=== PATIENT | female | born 1995 | race Caucasian/White ===

== ENCOUNTER 2022-10-17 15:56 | Emergency (ER) | payer OTHER, MEDICAID, SELFPAY ==
[2022-10-17 16:03] VITALS: BP 130/70; PULSE 98; RESP 16; TEMP 37.2; O2SAT 97; BMI 22.8
--- NOTE | 2022-10-17 16:09 | DI.RAD.S_ITS ---
PROCEDURE: XR TOE RT MIN 2V INDICATIONS: injury/pain TECHNIQUE: A single view of the foot and 2 views of the 1st toe(s) acquired. COMPARISON: None. FINDINGS: Bones: No fractures or dislocations. No suspicious bony lesions. Soft tissues: Generalized soft tissue swelling can be seen of the great toe. IMPRESSION: Generalized soft tissue swelling is seen of the great toe, without a focal bony abnormality. Dictated by: Eleazar Shaffer M.D. on 10/17/2022 at 15:47 Approved by: Eleazar Shaffer M.D. on 10/17/2022 at 15:48
--- NOTE | 2022-10-17 17:04 | ED_ITS ---
HPI - Extremity Injury (Lower) General Chief Complaint: Extremity Injury, Lower Stated Complaint: right foot injury/thinks broken Time Seen by Provider: 10/17/22 16:00 Source: patient Mode of arrival: Ambulatory History of Present Illness HPI Narrative: 27-year-old female nonsmoker without chronic medical history presents with her significant other and a chief complaint of an accidental injury to her right great toe prior to arrival. She was carrying some objects at home when she stepped awkwardly and caused her right great toe to bend down forcefully, she now has pain with attempts at range of motion, palpation and walking. She d enies numbness, tingling or weakness. She denies any chest pain or shortness of breath. She has no nausea, vomiting or diarrhea. Related Data Allergies Allergy/AdvReac Type Severity Reaction Status Date / Time amoxicillin Allergy Unknown Verified 05/16/22 10:33 Penicillins AdvReac Unknown Verified 05/16/22 10:33 Review of Systems Review of Systems Narrative: GENERAL: Denies chills, fatigue, malaise, fever, sweats. HEENT: Denies sinus pain, ear pain, sore throat, difficulty swallowing, dizziness. RESPIRATORY: Denies dyspnea, cough, wheezing, hemoptysis, sputum. CARDIOVASCULAR: Denies chest pain, palpitations, orthopnea, edema, GASTROINTESTINAL: Denies nausea, vomiting, abdominal pain, diarrhea, constipation, melena. : Denies dysuria, frequency, incontinence, hematuria, urinary retention. MUSCULOSKELETAL: See HPI SKIN: Denies rash, skin lesions, or other NEUROLOGIC: Denies weakness, headache, numbness, change in speech, confusion, seizures, incoordination. PSYCHIATRIC: No concerning psychosocial issues. 12 point review of systems is negative except for those stated above Patient History Social History Smoking Status: Never smoker Smoking Status: Never smoker Substance Use Type: does not use Exam Narrative Exam Narrative: GEN: AOx3 and in mild distress EYES: Pupils are equal, round, and reactive to light and accommodation. Extraoccular muscles are intact bilaterally. There is no subconjunctival hemorrhage or exudate. CHEST: Lungs are clear to auscultation bilaterally and free of wheezes, rales, or rhonchi. Heart rate is regular rhythm, there are no murmurs, clicks, rubs, or gallops. There is no chest wall tenderness. ABD: Abdomen is soft and nontender. There is no guarding or rebound. Bowel sounds are normal in all 4 quadrants. There is no mass or organomegaly. EXT: Full but painful range of motion of right great toe without obvious external manifestation of injury, closed, isolated and neurovascularly intact. Patient with 5/5 strength on active dorsiflexion of great toe, no subungual hematoma SKIN: Warm, pink, and dry. No erythema or rash Initial Vital Signs Initial Vital Signs: Vital Signs Temperature 98.9 F 10/17/22 16:03 Pulse Rate 98 H 10/17/22 16:03 Respiratory Rate 16 10/17/22 16:03 Blood Pressure 130/70 10/17/22 16:03 Pulse Oximetry 97 10/17/22 16:03 Oxygen Delivery Method 10/17/22 16:03 Procedures Orthopedic Splinting/Casting Injury #1: Side: right Lower Extremity Injury Location: foot Lower Extremity Immobilizer: post-op shoe Post splinting neuro exam: intact Post splinting vascular exam: intact Course Orders Ordered: ED Orders 10/17/22 16:09 XR toe RT min 2V Stat Vital Signs Vital signs: Vital Signs - 8 hr 10/17/22 16:03 Temperature 98.9 F Pulse Rate 98 H Respiratory Rate 16 Blood Pressure 130/70 Pulse Oximetry 97 Oxygen Delivery Method Room Air MDM - Extremity Injury (Lower) Imaging Data Extremity x-ray #1: Radiologist's Impression: [address] [address] XRay Report Signed Patient: Kristina Harkins MR#: [id number] : 1995 Acct:[id number] Age/Sex: 27 / F Date of Service: 10/17/22 Loc: ED Accession Number: [id number] ?? Procedure: XR toe RT min 2V Ordering Provider: Lamin Kam D.O. PROCEDURE:? XR TOE RT MIN 2V ? INDICATIONS:? injury/pain ? TECHNIQUE:? A single view of the foot and 2 views of the 1st toe(s) acquired.? ? COMPARISON:? None. ? FINDINGS:? ? Bones:? No fractures or dislocations.? No suspicious bony lesions.? ? Soft tissues:? Generalized soft tissue swelling can be seen of the great toe. ? IMPRESSION:? Generalized soft tissue swelling is seen of the great toe, without a focal bony abnormality. ? ? Dictated by: Eleazar Shaffer M.D. on 10/17/2022 at 15:47 ? ? Approved by: Eleazar Shaffer M.D. on 10/17/2022 at 15:48 ? Discharge Plan Departure Patient Disposition: Home Clinical Impression: Sprain of great toe Activity Restrictions/Additional Instructions: *You have been diagnosed with [Left great toe sprain. As we discussed there is no radiographic evidence of fracture or dislocation ] *What to do: *Please consider the routine use anti-inflammatories in the splint provided. As we discussed we would expect significant improvement in symptoms if not resolution over the next 5-7 days. * as we discussed please consider follow-up with local ortho or Podiatry, their contact number is listed below. Please let them know you were seen in the emergency department and we would like you seen in follow-up. *Return to Emergency Department if you should have any new, worsening or concerning symptoms Referrals: Val Gomes DPM [Physician] - Miscellaneous,DoctorMD [Primary Care Provider] - Visit Report Forms: Patient Portal/API
[2022-10-17 17:33] VITALS: BP 116/76; PULSE 77; RESP 18; O2SAT 96
== END 2022-10-17 17:33 | disposition home or self-care (01) ==
PROVIDERS: Emergency Provider Emergency Medicine
DX: S93.511A Sprain of interphalangeal joint of right great toe, initial encounter (principal); X50.1XXA Overexertion from prolonged static or awkward postures, initial encounter
CPT/HCPCS: 73660; 99281; 99283